=== PATIENT | male | born 1955 | race Caucasian/White ===

== ENCOUNTER 2016-10-10 09:50 | Emergency (ER) ==
--- NOTE | 2016-10-10 10:04 | ED.PDOC ---
General ED Provider: Dr. YVES DUNBAR JR Chief Complaint: Eye Problem Stated Complaint: LAST NIGHT AROUND 1700 I HAD A HAZE IN BOTH EYES. TOOK MY EYE DROPS NORMAL. WOKE UP THIS MORNING WITH DOUBLE VISION. [End]97.2 85 20 96% 182/101 sluggish pupils, red eyes 20/50 20/70 flexeril, pain pill, sleeping pill, keeping left eye closed Time Seen by Physician: 10:02 Mode of Arrival: Walk-In Information Source: Patient Exam Limitations: No limitations Nursing and Triage Documentation Reviewed and Agree: No Review of Systems - Review Of Systems Constitutional: Reports: No symptoms Eyes: Reports: Blurred vision, Other Ears, Nose, Mouth, Throat: Reports: No symptoms Respiratory: Reports: No symptoms Cardiac: Reports: No symptoms GI: Reports: No symptoms : Reports: No symptoms Skin: Reports: No symptoms Neurological: Reports: No symptoms Endocrine: Reports: No symptoms Hematologic/Lymphatic: Reports: No symptoms All Other Systems: Other Past Medical History - Past Medical History Endocrine: Reports: None Cardiovascular: Reports: None Respiratory: Reports: None Hematological: Reports: None Gastrointestinal: Reports: None Genitourinary: Reports: None Neuro/Psych: Reports: Other (NERVE DAMAGE IN RIGHT ARM) Musculoskeletal: Reports: Arthritis Cancer: Reports: None - Surgical History General Surgical History: Reports: Orthopedic (BOTH KNEES) - Family History Family History: Reports: Unknown - Social History Smoking Status: Never smoker Hx Substance Use: No Alcohol Screening: None - Immunizations Tetanus Shot up to Date: Yes Physical Exam - Physical Exam Appearance: Well-appearing Eyes: OSBALDO (not sluggish on exam), EOMI, Conjunctiva clear (not red on exam) ENT: Ears normal, Nose normal, Oropharynx normal Neck: Supple Respiratory: Airway patent, Breath sounds clear, Breath sounds equal, Respirations nonlabored Cardiovascular: RRR, Pulses normal, No rub, No murmur GI/: Soft, Nontender, No masses, Bowel sounds normal, No Organomegaly Musculoskeletal: Normal strength, ROM intact, No edema, No calf tenderness Skin: Warm, Dry, Normal color Neurological: Sensation intact, Motor intact, Reflexes intact, Cranial nerves intact (no detectable palsy note double vision per patinet all sectors, not worse to left or right, no fundal lesions seen, ), Alert, Oriented Psychiatric: Anxious Interpretation - Radiology Interpretation Radiology Interpretation By: Radiologist Radiology Results: Positive Exam Interpreted: CT Scan (head no acute changes small vessel disease LEFT MAXILLARY SINUSITIS) Physician Notification - Case Discussed Physician Notified: Dr Devine Time of Notification: 10:29 (check SSI non acute can see in office appointment next week) Critical Care Note - Critical Care Note Total Time (mins): 10 Course - Course Hematology/Chemistry: 10/10/16 10:35 10/10/16 10:35 Vital Signs: Temp Pulse Resp BP Pulse Ox 10/10/16 09:52 97.2 F L 85 20 182/101 H 96 Departure - Departure Time of Disposition: 11:40 Disposition: HOME SELF-CARE Discharge Problem: Diplopia Instructions: Diplopia (ED), Sinusitis (ED) Condition: Good Pt referred to PMD for follow-up: No (FOLLOW UP OPHTHALMOLOGY SCHEDULED) Additional Instructions: FOLLOW UP WITH YOUR PHYSICIAN TO RECHECK BLOOD PRESSURE FLUID IN LEFT MAXILLARY SINUS- SINUSITIS- NOT TENDER ANTIHISTAMINE(CLARITIN) FOR CONGESTION, RECHECK IF FEVER INCREASE IN SEDIMENTATION RATE- MAY BEGIN MEDROL DOSE PACK FOLLOW UP WITH EYE DOCTOR SCHEDULED 10/15/16 RETURN IF HEADACHE, FEVER OVER 101.0, IF NEW SYMPTOMS Prescriptions: Loratadine [Claritin] 10 mg PO DAILY PRN #30 tablet PRN Reason: Allergy Symptoms Methylprednisolone [Medrol Dosepak] 4 mg PO DIRECTED #1 pkg Allergies/Adverse Reactions: Allergies No Known Allergies Allergy (Unverified 10/17/15 10:34) Home Medications: Ambulatory Orders Dorzolamide HCl/Timolol Maleat [Cosopt] 2 drop OP BID 10/10/16 Hydrocodone/Acetaminophen [Hydrocodon-Acetaminoph 7.5-325] 7.5 mg PO PRN PRN 10/25 Loratadine [Claritin] 10 mg PO DAILY PRN #30 tablet 10/10/16 Methylprednisolone [Medrol Dosepak] 4 mg PO DIRECTED #1 pkg 10/10/16 Tizanidine HCl 4 mg PO BEDTIME PRN 10/10/16 Zolpidem Tartrate 10 mg PO BEDTIME 10/10/16
[2016-10-10 10:06] VITALS: TEMP 97.2; BMI 37.1
[2016-10-10 10:48] LABS: BASOPHILS # (AUTO) 0.1 K/uL (0-0.2); BASOPHILS % (AUTO) 0.9 % (0.0-3.0); EOSINOPHILS # (AUTO) 0.3 K/ul (0.0-0.7); HEMATOCRIT 48.5 % (42.0-52.0); HEMOGLOBIN 15.9 g/dl (14.0-18.0); IMMATURE GRANULOCYTE % (AUTO) 0.4 % (0.0-5.0); LYMPHOCYTES # (AUTO) 1.6 K/uL (0.60-3.4); LYMPHOCYTES % (AUTO) 23.7 (10.0-50.0); MEAN CORPUSCULAR HEMOGLOBIN 29.2 pg (27.0-31.0); MEAN CORPUSCULAR HGB CONC 32.8 (31.8-35.4); MONOCYTES # (AUTO) 0.7 K/uL (0.4-2.0); MONOCYTES % (AUTO) 10.4 (0-10); NEUTROPHILS % (AUTO) 59.6; PLATELET COUNT 273 10^3/uL (140-440); RED BLOOD COUNT 5.45 10^6/ul (4.70-6.10); WHITE BLOOD COUNT 6.75 K/ul (4.2-10.2)
[2016-10-10 11:08] LABS: ALBUMIN 4.2 g/dL (3.4-5.0); ALBUMIN/GLOBULIN RATIO 1.05; ANION GAP 14.6; BILIRUBIN,TOTAL 0.81 mg/dL (0.00-1.20); BUN/CREATININE RATIO 13.33; CALCIUM 10.1 mg/dL (8.2-10.2); CREATININE 0.9 mg/dL (0.60-1.10); POTASSIUM 4.6 mmol/L (3.5-5.1); TOTAL PROTEIN 8.2 g/dL (6.4-8.2)
--- NOTE | 2016-10-10 11:09 | CT ---
EXAM: CT head without contrast. HISTORY: Diplopia. Headache. COMPARISON: None available. TECHNIQUE: Multiple axial images of the brain were obtained from the skull base through the vertex without intravenous contrast. FINDINGS: There is no intracranial hemorrhage or extraaxial collection. The valdez-white differentia tion is maintained without evidence for acute large vascular territory infarction. There are areas of periventricular and subcortical white matter low attenuation. The cortical sulci and cerebral ve ntricles are symmetrically enlarged. The basal cisterns are well visualized. There is no hydroceph alus, mass effect, or midline shift. Moderate opacification of the ethmoidal air cells noted. Ther e is a moderate-sized air-fluid level in the left maxillary sinus. Mild right maxillary sinus mucos al thickening noted. Otherwise, the paranasal sinuses and mastoid air cells are clear. The calvari um is intact. IMPRESSION: 1. No acute intracranial abnormality. 2. Chronic small vessel ischemic changes and atrophy. 3. Sinusitis
[2016-10-10 11:15] VITALS: BP 161/86
[2016-10-10 11:24] LABS: ERYTHROCYTE SEDIMENTATION RATE 27 mm/hr (0-15); ESR INTERNAL QC INTERNAL QC VALID
== END 2016-10-10 11:48 | disposition home or self-care (01) ==
LOC: ED 09:50
DX: H53.2 Diplopia (principal); J32.0 Chronic maxillary sinusitis; R03.0 Elevated blood-pressure reading, without diagnosis of hypertension
CPT/HCPCS: 36415; 80053; 85025; 85651; 99283

== ENCOUNTER 2016-10-14 13:42 | Outpatient (CLI) ==
--- NOTE | 2016-10-14 22:44 | MRI ---
EXAM: Brain MRI without contrast. HISTORY: Left visual accommodation paralysis. Previous reports indicate a history of diplopia and headache. COMPARISON: Head CT 10/10/2016. TECHNIQUE: Multiplanar, multisequence MR images were acquired of the brain without contrast. FINDINGS: The midline structures are central and the craniocervical junction is unremarkable. Ther e is mild prominence of the lateral ventricle and sulci consistent with age related involutional tito nges. There are no abnormal extra-axial fluid collections. The brain parenchyma has no diffusion restriction to suggest acute hypoperfusion or infarction. The re are small T2 hyperintensities in the supratentorial white matter and jhon consistent with minor l eukomalacia. The corpus callosum is normal. The pituitary gland is low normal in size. There is a small cystic pineal gland. There are no intraorbital masses. A disconjugate gaze is present. Mild to moderate mucosal thickening is present in the ethmoid air cells bilaterally and there is mil d mucosal thickening in both maxillary sinuses. There is a small left maxillary sinus effusion. Mi nor leftward nasal septal deviation is present with a left nasal septal spur. There is under pneuma tization of the inferior mastoid air cells bilaterally compatible with sequela of prior chronic mast oid disease and there are thickened sclerotic septa and mild mucosal thickening in a few of the res idual left mastoid air cells. There is mild adenoidal hypertrophy with small nasopharyngeal mucosal cysts. Flow voids are present in the major intracranial arteries. However, there are dominant bilateral po sterior communicating arteries and the left vertebral artery and basilar artery are developmentally tiny. The right vertebral artery is not clearly identified and may become tiny and below the thresh old resolution of this MR angiogram or it may end as the right posterior inferior cerebellar artery. These findings raise the possibility of vertebral basilar insufficiency. Dural venous sinuses are patent. There is a prominent arachnoid granulation in a venous rose in the right paramidline parietal calvarium has slightly more posteriorly, there is focal discontinuity in the right paramidline posterior parietal bone which contains a small probable sinus pericranii. IMPRESSION: 1. No intracranial mass, hemorrhage or acute cerebral infarct. 2. Minor chronic ischemic small vessel disease and age related involutional changes. 3. Mild to moderate bilateral ethmoiditis and mild bilateral chronic maxillary sinusitis with small left maxillary sinus effusion.
== END 2016-10-14 13:43 | disposition home or self-care (01) ==
LOC: RAD 13:42
PROVIDERS: ATTEND Family Medicine
DX: H52.52 Paresis of accommodation (principal)

== ENCOUNTER 2016-10-18 12:09 | Outpatient (CLI) ==
--- NOTE | 2016-10-18 14:11 | US ---
EXAM: Ultrasound bilateral carotid duplex. HISTORY: Visual loss. COMPARISON: None available. TECHNIQUE: Multiple valdez scale and color Doppler images were obtained. FINDINGS: Please note that estimates of internal carotid artery stenoses are based upon NASCET dada [place]. Right carotid: Mild plaquing noted without 50% or greater stenosis. Peak systolic velocity measure ment in the right internal carotid artery is 1.1 meters per second. Right internal to common caroti d artery peak systolic velocity ratio measures 1.3. End diastolic velocity measurement in the right internal carotid artery is 0.5 meters per second. Flow in the right vertebral artery is not identi fied. Left carotid: Mild plaquing noted without 50% or greater stenosis. Peak systolic velocity measurem ent in the left internal carotid artery is 1.0 meters per second. Left internal to common carotid a rtery peak systolic velocity ratio measures 1.1. End diastolic velocity measurement in the left int ernal carotid artery measures 0.3 meters per second. Flow in the left vertebral artery is antegrade . IMPRESSION: 1. No evidence for 50% or greater stenosis in the right or left internal carotid artery. 2. Nonvisualized right vertebral artery which could be due to technical factors. In the proper cli nical setting, stenosis or occlusion could be present. Consider further evaluation as warranted. 3. Antegrade flow in the left vertebral artery.
== END 2016-10-18 12:10 | disposition home or self-care (01) ==
LOC: RAD 12:09
PROVIDERS: ATTEND Family Medicine
DX: I67.848 Other cerebrovascular vasospasm and vasoconstriction (principal); H54.7 Unspecified visual loss

== ENCOUNTER 2016-10-28 08:37 | Outpatient (CLI) ==
--- NOTE | 2016-10-28 16:45 | CT ---
EXAM: CT angiogram of the neck and [place] with and without contrast TECHNIQUE: Helical axial CT angiogram of the neck and [place] was performed with and witho ut contrast with coronal and sagittal and multiplanar reconstructions as well as separate work stati on 3-D renderings. COMPARISON: Brain MRI from 10/14/2016 and carotid Doppler from 10/18/2016. This demonstrated nonvi sualization of the right vertebral artery and some bilateral carotid plaquing resulting in less than 50% luminal diameter narrowing. HISTORY: Amaurosis fugax and abnormal carotid Doppler [place] FINDINGS: Right internal carotid artery distribution: The right internal carotid artery, middle cerebral arter y including the M1, M2, A1, A2 and runoff branches are widely patent. There is some trace non stenot ic calcific atherosclerosis. Left internal carotid artery distribution: The left internal carotid artery, middle cerebral artery including the M1, M2, A1, A2 and runoff branches are widely patent. There is some trace non stenotic calcific atherosclerosis. Anterior communicating artery: Patent Posterior communicating arteries: There appear to be bilateral origins of the posterior cerebr al arteries. Vertebral basilar system: The V4 segment of the right vertebral artery is not identified. The basila r artery is extremely attenuated. This is due to bilateral origins of the posterior cerebral arteries which contribute most of the posterior circulation from the carotids. There are no aneurysms or vascular malformations. The dural sinuses are widely patent. There are no acute intracranial abnormalities. There is an air-fluid level seen in the maxillary sinus on the le ft with some membrane thickening noted otherwise. Aorta: Visualized portion of the aorta shows some non stenotic calcific atherosclerosis. Right carotid artery: The origin of the right carotid artery off of the brachiocephalic is widely p atent. The right common carotid artery in the neck is widely patent. At the bifurcation there is a fair amount of calcific atherosclerosis of the proximal internal carotid artery which probably resu lts in 20-30% narrowing. The cervical right internal carotid artery is widely patent. There is no e vidence for aneurysm or dissection. Right vertebral artery: There is an extremely atretic right vertebral artery identified which does appear to arise from the right subclavian artery. This vessel is seen extending into the V3 segment where it is no longer seen. Left carotid artery: The origin of the left carotid artery off of the aortic arch is widely patent. The left carotid bifurcation again demonstrates some non hemodynamically significant calcific ather osclerosis probably in the 20-30% luminal diameter narrowing range. The cervical left internal muñoz tid artery is widely patent. There is no evidence for dissection or aneurysm. Left vertebral artery: The origin of the left vertebral artery off of the left subclavian artery is widely patent. The course of the left vertebral artery in the neck is also unremarkable with no fo ping stenosis or aneurysm or dissection. IMPRESSION: 1. Non hemodynamically significant calcific atherosclerosis of both carotid bifurcations as describ ed probably in the 20 30% luminal diameter narrowing range which correlates with ultrasound findings . 2. 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 3. origins of the posterior cerebral arteries bilaterally which results in extremely vertebra l basilar system.
== END 2016-10-28 08:38 | disposition home or self-care (01) ==
LOC: RAD 08:37
PROVIDERS: ATTEND Family Medicine
DX: I65.09 Occlusion and stenosis of unspecified vertebral artery (principal)

== ENCOUNTER 2019-02-04 07:44 | Outpatient (CLI) ==
--- NOTE | 2019-02-04 12:06 | CT ---
EXAM: CT abdomen pelvis with contrast HISTORY: Generalized abdominal pain COMPARISON: None TECHNIQUE: CT abdomen pelvis performed with intravenous contrast. Coronal and sagittal reformatted images obtained. FINDINGS: Lung bases clear. No free air. No acute abnormalities of the bones. Degenerative change in the spine. Heart normal in size. Possible contour nodularity of the liver resenting questionabl e cirrhotic configuration. Gallbladder unremarkable. Pancreas unremarkable. Spleen unremarkable. Adrenals unremarkable. Left renal cyst measures 3 cm with additional sub centimeter hypodensities in the right kidney, too small to characterize. No hydronephrosis. Prostate is enlarged, indenting th e bladder base. Ectasia infrarenal abdominal aorta measures up to 2.7 cm. Moderate atherosclerosis. Small fat-containing periumbilical hernia. Small bilateral fat containing inguinal hernias. No lym phadenopathy or ascites. Small hiatal hernia. No dilated loops small bowel. Appendix appears iban l. Colonic diverticulosis. No acute no inflammatory stranding identified in the abdomen pelvis. IMPRESSION: 1. No acute abnormality identified in the abdomen pelvis. 2. Questionable cirrhotic configuration of the liver. 3. Colonic diverticulosis. 4. Enlarged prostate indenting the bladder base 5. Atherosclerosis. Ectasia infrarenal abdominal aorta measuring up to 2.7 cm 6. Small hiatal hernia.
== END 2019-02-04 07:45 | disposition home or self-care (01) ==
LOC: RAD 07:44
PROVIDERS: ATTEND Family Medicine
DX: R10.84 Generalized abdominal pain (principal)
CPT/HCPCS: 36415; 82565